=== PATIENT | male | born 1975 | race Caucasian/White ===

== ENCOUNTER 2016-07-16 16:57 | Emergency (ER) | payer OTHER ==
[2016-07-16 17:24] VITALS: BP 138/86; PULSE 102; TEMP 98.1; BMI 31.9
== END 2016-07-16 19:04 | disposition left against medical advice (07) ==
LOC: JER 16:57
DX: Z53.21 Procedure and treatment not carried out due to patient leaving prior to being seen by health care provider (principal)
CPT/HCPCS: 99281-25

== ENCOUNTER 2016-12-21 23:03 | Emergency (ER) | payer OTHER ==
[2016-12-21 23:22] VITALS: BP 126/68; PULSE 104; TEMP 98.6; BMI 30.2
--- NOTE | 2016-12-21 23:56 | PDOC ---
History of Present Illness - General History Source: Patient - History of Present Illness Initial Comments: 12/22/16 02:34 41-year-old male with a history of heavy ETOH use, liver cirrhosis, hemochromatosis, gastro-esophageal reflux disease without esophagitis, essential hypertension, drug-induced disorder of liver, hyperlipidemia, hypercholesterolemia presents to the emergency department with his ex- after his oncologists/Dr. Les Aranda called him and advised him that his INR was 5 and PTT was 54. Patient denies any headache, dizziness, lightheadedness, visual disturbance, neck pains, back pains, chest pain, shortness of breath, abdominal pain, flank pains, urinary symptoms. Patient says he has no complaints. He was at his physician's office this morning for routine exam. Patient states he does not want to be in the emergency department. Patient's states he kept saying Tyrease from the movie [employer] was in his living room earlier today. Pt denies any recent injury but did "bump" his head/ frontal forehead against a cabinet x3d ago. No LOC <Carloz Rogers - Last Filed: 12/22/16 02:39> <Karen Torrez - Last Filed: 12/24/16 07:32> - General Chief Complaint: Revisit, Lab Variance Stated Complaint: EVALUATION Time Seen by Provider: 12/21/16 23:36 Past History - Past Medical History Anemia: No Asthma: No Cancer: No Cardiac Disorders: No CVA: No COPD: No CHF: No Dementia: No Diabetes: No GI Disorders: No Disorders: No HTN: Yes Hypercholesterolemia: No Liver Disease: Yes (liver cirrhosis, hemochromatosis, hepatic encephalopathy) Seizures: No Thyroid Disease: No Lung CA: Yes - Surgical History Abdominal Surgery: No Appendectomy: No Cardiac Surgery: No Cholecystectomy: No Lung Surgery: No Neurologic Surgery: No Orthopedic Surgery: No - Immunization History Immunization Up to Date: Yes - Psycho/Social/Smoking Cessation Hx Anxiety: No Suicidal Ideation: No Smoking History: Never smoked Have you smoked in the past 12 months: No If you are a former smoker, when did you quit?: 2011 Information on smoking cessation initiated: No Hx Alcohol Use: Yes Drug/Substance Use Hx: No Substance Use Type: Alcohol Hx Substance Use Treatment: No <Carloz Rogers - Last Filed: 12/22/16 02:39> <Karen Torrez - Last Filed: 12/24/16 07:32> - Past Medical History Allergies/Adverse Reactions: Allergies Allergy/AdvReac Type Severity Reaction Status Date / Time No Known Drug Allergies Allergy Verified 12/21/16 23:16 Home Medications: Ambulatory Orders Lansoprazole [Prevacid] 30 mg PO DAILY 10/05/15 Review of Systems - Review of Systems Able to Perform ROS?: Yes Comments:: 12/22/16 02:37 CONSTITUTIONAL: Absent: fever, chills, diaphoresis, generalized weakness, malaise, loss of appetite HEENT: Absent: rhinorrhea, nasal congestion, throat pain, throat swelling, difficulty swallowing, mouth swelling, ear pain, eye pain, visual Changes CARDIOVASCULAR: Absent: chest pain, loss of consciousness, palpitations, irregular heart rate, peripheral edema RESPIRATORY: Absent: cough, shortness of breath, dyspnea with exertion, orthopnea, wheezing, stridor, hemoptysis GASTROINTESTINAL: Absent: abdominal pain, abdominal distension, nausea, vomiting, diarrhea, constipation, melena, hematochezia GENITOURINARY: Absent: dysuria, frequency, urgency, hesitancy, hematuria, flank pain, genital pain MUSCULOSKELETAL: Absent: myalgia, arthralgia, joint swelling SKIN: Absent: rash, itching, pallor HEMATOLOGIC/IMMUNOLOGIC: Absent: easy bleeding, easy bruising, lymphadenopathy, frequent infections ENDOCRINE: Absent: unexplained weight gain, unexplained weight loss, heat intolerance, cold intolerance NEUROLOGIC: Absent: headache, focal weakness or paresthesias, dizziness, unsteady gait, seizure, mental status changes, bladder or bowel incontinence PSYCHIATRIC: Absent: anxiety, depression, suicidal or homicidal ideation, hallucinations. Is the patient limited Filipino proficient: No <Carloz Rogers - Last Filed: 12/22/16 02:39> *Physical Exam - Vital Signs Last Vital Signs Temp Pulse Resp BP Pulse Ox 98.6 F 104 H 20 126/68 97 12/21/16 23:18 12/21/16 23:18 12/21/16 23:18 12/21/16 23:18 12/21/16 23:18 - Physical Exam Comments: 12/22/16 02:37 GENERAL: Well developed, well nourished. Awake and alert. No acute distress. HEENT: Normocephalic, atraumatic. PERRLA, EOMI. No conjunctival pallor. Sclera are non- icteric. Moist mucous membranes. Oropharynx is clear. NECK: Supple. Full ROM. No JVD. Carotid pulses 2+ and symmetric, without bruits. No thyromegaly. No lymphadenopathy. CARDIOVASCULAR: Regular rate and rhythm. No murmurs, rubs, or gallops. Distal pulses are 2+ and symmetric. PULMONARY: No evidence of respiratory distress. Lungs clear to auscultation bilaterally. No wheezing, rales or rhonchi. ABDOMINAL: Soft. Non-tender. Non-distended. No rebound or guarding. No organomegaly. Normoactive bowel sounds. MUSCULOSKELETAL Normal range of motion at all joints. No bony deformities or tenderness. No CVA tenderness. EXTREMITIES: No cyanosis. No clubbing. No edema. No calf tenderness. SKIN: Warm and dry. Normal capillary refill. No rashes. No jaundice. NEUROLOGICAL: Alert, awake, appropriate. Cranial nerves 2-12 intact. No deficits to light touch and temperature in face, upper extremities and lower extremities. No motor deficits in the in face, upper extremities and lower extremities. Normoreflexic in the upper and lower extremities. Normal speech. Toes are down- going bilaterally. Gait is normal without ataxia. PSYCHIATRIC: Cooperative. Good eye contact. Appropriate mood and affect. <Carloz Rogers - Last Filed: 12/22/16 02:39> - Vital Signs Last Vital Signs Temp Pulse Resp BP Pulse Ox 98.6 F 104 H 20 126/68 97 12/21/16 23:18 12/21/16 23:18 12/21/16 23:18 12/21/16 23:18 12/21/16 23:18 <Karen Torrez - Last Filed: 12/24/16 07:32> ED Treatment Course - LABORATORY CBC & Chemistry Diagram: 12/22/16 00:10 12/22/16 00:10 - RADIOLOGY Radiograph Interpretation: 12/22/16 00:58 CT scan head w/o contrast: The ventricular system midline and nondilated. No bleeding/mass effect. <Carloz Rogers - Last Filed: 12/22/16 02:39> - LABORATORY CBC & Chemistry Diagram: 12/22/16 00:10 12/22/16 00:10 - ADDITIONAL ORDERS Additional order review: 12/22/16 00:10 RBC 3.38 L MCV 88.0 MCHC 33.9 RDW 16.7 H D MPV 9.9 D Neutrophils % 72.5 D Lymphocytes % 16.9 D Monocytes % 9.6 Eosinophils % 0.3 Basophils % 0.7 <Karen Torrez - Last Filed: 12/24/16 07:32> *DC/Admit/Observation/Transfer - Discharge Dispostion Admit: No <SueGracielaCarloz - Last Filed: 12/22/16 02:39> - Attestations Physician Attestion: I reviewed the case with the mid-level practitioner and agree with the mid- level practitioner's assessment, diagnosis and disposition. <Karen Torrez - Last Filed: 12/24/16 07:32> Diagnosis at time of Disposition: Elevated INR - Discharge Dispostion Disposition: AGAINST MEDICAL ADVICE Condition at time of disposition: Guarded - Referrals Referrals: Taylor Engle [Primary Care Provider] - - Patient Instructions Additional Instructions: You have been strongly advised to not sign out AGAINST MEDICAL ADVICE which you insists on doing this evening. You informed that your physician/Dr. Choe will be returning my call regarding your blood work but you insists on leaving prior to him calling me back. Your ex- has informed you and myself that she will be with you all weekend. Return back to the emergency department immediately for any concerns, headaches , weakness, dizziness, chest pain, shortness of breath. Progress Note - Progress Note Progress Note: 0050hrs: Lynda from commissions coordinator. 0109hrs: Patient adamantly refuses to stay in the emergency department for any treatment. Patient insists on signing out AGAINST MEDICAL ADVICE. Patient is alert and oriented 3. Patient is, accompanied by his ex- who states she will stay with him through the weekend until Saturday when he is able to see his oncologist. Les Mast Dr's team has been notified. <Carloz Rogers - Last Filed: 12/22/16 02:39>
[2016-12-22 00:23] LABS: BASOPHIL 0.7 % (0-2.0); EOSINOPHIL 0.3 % (0-4.5); MCH 29.8 pg (25.7-33.7); MCHC 33.9 g/dl (32.0-35.9); NEUTROPHILS 72.5 % (42.8-82.8); RDW 16.7 % (11.9-15.9); WHITE BLOOD COUNT 10.3 K/mm3 (4.0-10.0)
[2016-12-22 00:39] LABS: PROTHROMBIN TIME (PATIENT) 48.3 SEC (9.98-11.88)
[2016-12-22 00:42] LABS: INR 4.26 (0.82-1.09)
[2016-12-22 00:47] LABS: ALBUMIN 2.9 g/dl (3.4-5.0); ANION GAP 17 (8-16); CALCIUM 8.1 mg/dL (8.5-10.1); CO2 22 mmol/L (21-32); CREATININE 2.7 mg/dL (0.7-1.3); GLUCOSE,RANDOM 89 mg/dL (74-106); SGPT/ALT 102 U/L (12-78)
[2016-12-22 00:58] LABS: ALK PHOS 241 U/L (45-117)
[2016-12-22 01:01] LABS: SGOT/AST 581 U/L (15-37); TOT PROT 7.7 g/dl (6.4-8.2)
[2016-12-22 01:03] LABS: BILIRUBIN,TOTAL 23.9 mg/dL (0.2-1.0)
[2016-12-22 03:42] LABS: MEAN PLT VOLUME 9.9 fl (7.5-11.1); PLATELET COUNT 89 K/MM3 (134-434)
[2016-12-22 03:43] LABS: PLATELET COMMENT2 NO CLUMPING NOTED
[2016-12-22 03:50] LABS: PLATELET ESTIMATE SLT DECREASED (NORMAL)
== END 2016-12-22 01:20 | disposition left against medical advice (07) ==
LOC: JER 23:03
DX: D68.8 Other specified coagulation defects (principal); I10 Essential (primary) hypertension; E78.00 Pure hypercholesterolemia, unspecified; F10.10 Alcohol abuse, uncomplicated; K74.60 Unspecified cirrhosis of liver; E83.119 Hemochromatosis, unspecified
CPT/HCPCS: 36415; 70450-TC; 80053; 82140; 85025; 85610; 99283-25

== ENCOUNTER 2017-02-17 09:27 | Emergency (ER) | payer OTHER ==
[2017-02-17 09:32] VITALS: BP 127/84; PULSE 83; TEMP 97.9; BMI 32.2
--- NOTE | 2017-02-17 10:45 | PDOC ---
History of Present Illness - General Chief Complaint: Wound Stated Complaint: Rt abd incision site leak Time Seen by Provider: 02/17/17 10:04 History Source: Patient Exam Limitations: No Limitations - History of Present Illness Initial Comments: 02/17/17 10:44 41-year-old male with history of cirrhosis, hemachromatosis, hepatic encephalopathy, and recent paracentesis done 2 days ago arrives here with complaints of leaking yellow fluid 6 hours from the paracentesis site to his right lower quadrant. Patient states had apparently 4 L removed and is pending a liver transplant. Patient states unable the care of Dr. Aranda who we have an appointment with tomorrow morning at [address] [place] [address] in [place]. Patient has no complaints of abdominal pain, fever, chills shortness breath, difficulty moving his bowels or urinating. Timing/Duration: 4-6 hours Severity: mild Associated Symptoms: reports: denies symptoms Past History - Travel Traveled outside of the country in the last 30 days: No - Past Medical History Allergies/Adverse Reactions: Allergies Allergy/AdvReac Type Severity Reaction Status Date / Time No Known Drug Allergies Allergy Verified 02/17/17 09:32 Home Medications: Ambulatory Orders Unobtainable [Unobtainable] 02/17/17 Anemia: No Asthma: No Cancer: No Cardiac Disorders: No CVA: No COPD: No CHF: No Dementia: No Diabetes: No GI Disorders: No Disorders: No HTN: Yes Hypercholesterolemia: No Liver Disease: Yes (liver cirrhosis, hemochromatosis, hepatic encephalopathy) Seizures: No Thyroid Disease: No Lung CA: Yes Other medical history: Needs liver transplant, Hemacromatosis - Surgical History Abdominal Surgery: No (paracentesis) Appendectomy: No Cardiac Surgery: No Cholecystectomy: No Lung Surgery: No Neurologic Surgery: No Orthopedic Surgery: No - Immunization History Immunization Up to Date: Yes - Suicide/Smoking/Psychosocial Hx Smoking History: Never smoked Have you smoked in the past 12 months: No If you are a former smoker, when did you quit?: 2011 Information on smoking cessation initiated: No Hx Alcohol Use: No Drug/Substance Use Hx: No Substance Use Type: Alcohol Hx Substance Use Treatment: No Patient Lives Alone: No Review of Systems - Review of Systems Able to Perform ROS?: Yes Constitutional: No: Symptoms Reported Integumentary: No: Symptoms Reported Hematologic/Lymphatic: No: Symptoms Reported *Physical Exam - Vital Signs Last Vital Signs Temp Pulse Resp BP Pulse Ox 97.9 F 83 18 127/84 100 02/17/17 09:29 02/17/17 09:29 02/17/17 09:29 02/17/17 09:29 02/17/17 09:29 - Physical Exam General Appearance: Yes: Nourished, Appropriately Dressed. No: Apparent Distress HEENT: positive: Scleral Icterus (R), Scleral Icterus (L) Neck: positive: Supple Respiratory/Chest: positive: Lungs Clear, Normal Breath Sounds. negative: Respiratory Distress, Accessory Muscle Use Cardiovascular: positive: Regular Rhythm, Regular Rate. negative: Murmur Integumentary: positive: Jaundice, Other (0.5 linear incision to the right lower quadrant with scant amount of clear yellow fluid noted with palpation or movement) Neurologic: positive: Motor Strength 5/5 (ambulatory) Procedures - Laceration/Wound Repair Right Abdomen Wound Length: to 2.5 cm Wound's Depth, Shape: superficial, linear Wound Repaired With: Steri-strips, Dermabond Sterile Dressing Applied: Yes Medical Decision Making - Medical Decision Making 02/17/17 10:46 Patient with fluid draining from right lower quadrant incision. Patient on exam had no signs of infection. Area was reinforced with Dermabond and Steri-Strips. Patient reassessed after half hour of application. Area clean and dry. Patient covered with 4 x 4 gauze and will be discharged home to follow-up with his physician tomorrow morning as previously scheduled. Transfer text *DC/Admit/Observation/Transfer Diagnosis at time of Disposition: Dehiscence of closure of skin Qualifiers: Encounter type: initial encounter Qualified Code(s): T81.31XA - Disruption of external operation (surgical) wound, not elsewhere classified, initial encounter - Discharge Dispostion Disposition: HOME Condition at time of disposition: Improved - Referrals Referrals: Taylor Engle [Primary Care Provider] - - Patient Instructions Printed Discharge Instructions: DI for Laceration Repair With Dermabond Additional Instructions: Keep area clean and dry for the next few days and allow area to heal. Please follow-up with your doctor as scheduled tomorrow. Please return to ED as needed. - Post Discharge Activity
--- NOTE | 2017-02-17 10:50 | PDOC ---
*Physical Exam - Vital Signs Last Vital Signs Temp Pulse Resp BP Pulse Ox 97.9 F 83 18 127/84 100 02/17/17 09:29 02/17/17 09:29 02/17/17 09:29 02/17/17 09:29 02/17/17 09:29 Medical Decision Making - Medical Decision Making 02/17/17 10:49 Pt seen by the Advanced Practice Provider under my direct supervision Ancillary studies reviewed I agree with plan as outlined by the Advanced Practice Provider *DC/Admit/Observation/Transfer Diagnosis at time of Disposition: Dehiscence of closure of skin Qualifiers: Encounter type: initial encounter Qualified Code(s): T81.31XA - Disruption of external operation (surgical) wound, not elsewhere classified, initial encounter - Discharge Dispostion Disposition: HOME Condition at time of disposition: Improved - Referrals Referrals: Taylor Engle [Primary Care Provider] - - Patient Instructions Printed Discharge Instructions: DI for Laceration Repair With Dermabond Additional Instructions: Keep area clean and dry for the next few days and allow area to heal. Please follow-up with your doctor as scheduled tomorrow. Please return to ED as needed. - Post Discharge Activity
== END 2017-02-17 10:59 | disposition home or self-care (01) ==
LOC: JER 09:27
PROC: 0HQ7XZZ Repair Abdomen Skin, External Approach (ICD-10-PCS; principal; 2017-02-17)
DX: T81.31XA Disruption of external operation (surgical) wound, not elsewhere classified, initial encounter (principal); Z98.890 Other specified postprocedural states; K74.69 Other cirrhosis of liver; E83.119 Hemochromatosis, unspecified
CPT/HCPCS: 12001-25; 99281-25

== ENCOUNTER 2017-04-14 19:35 | Emergency (ER) | payer OTHER ==
[2017-04-14 19:55] VITALS: BP 101/56; PULSE 81; TEMP 98.4; BMI 31.1
--- NOTE | 2017-04-14 20:45 | PDOC ---
History of Present Illness - General Chief Complaint: Pain Stated Complaint: PAIN Time Seen by Provider: 04/14/17 20:10 History Source: Patient Exam Limitations: No Limitations - History of Present Illness Initial Comments: 04/14/17 20:39 Patient is a 41M with history of alcohol abuse, cirrhosis, hemochromatosis, and recent paracentesis 3 days ago here today complaining of leakage from his paracentesis site. He states that he's been leaking fluid from the site since this morning. He denies abdominal pain, fevers, chills, nausea and vomiting. He endorses diffuse itchiness. Patient is on the transplant list for liver. Denies shortness of breath, chest pain, and cough. Past History - Past Medical History Allergies/Adverse Reactions: Allergies Allergy/AdvReac Type Severity Reaction Status Date / Time No Known Drug Allergies Allergy Verified 02/17/17 09:32 Home Medications: Ambulatory Orders Unobtainable [Unobtainable] 02/17/17 Anemia: No Asthma: No Cancer: No Cardiac Disorders: No CVA: No COPD: No CHF: No Dementia: No Diabetes: No GI Disorders: No Disorders: No HTN: Yes Hypercholesterolemia: No Liver Disease: Yes (liver cirrhosis, hemochromatosis, hepatic encephalopathy) Seizures: No Thyroid Disease: No Lung CA: Yes - Surgical History Abdominal Surgery: No (paracentesis every Th) Appendectomy: No Cardiac Surgery: No Cholecystectomy: No Lung Surgery: No Neurologic Surgery: No Orthopedic Surgery: No - Immunization History Immunization Up to Date: Yes - Suicide/Smoking/Psychosocial Hx Smoking History: Former smoker Have you smoked in the past 12 months: No If you are a former smoker, when did you quit?: 2011 Information on smoking cessation initiated: No Hx Alcohol Use: No Drug/Substance Use Hx: No Substance Use Type: Alcohol Hx Substance Use Treatment: No Review of Systems - Review of Systems Comments:: 04/14/17 20:42 GENERAL/CONSTITUTIONAL: No fever or chills. No weakness. CARDIOVASCULAR: No chest pain or shortness of breath RESPIRATORY: No cough, wheezing, or hemoptysis. GASTROINTESTINAL: No nausea, vomiting, diarrhea or constipation. GENITOURINARY: No dysuria, frequency, or change in urination. MUSCULOSKELETAL: No joint or muscle swelling or pain. No neck or back pain. SKIN: No rash NEUROLOGIC: No headache, vertigo, loss of consciousness, or change in strength/ sensation. ENDOCRINE: No increased thirst. No abnormal weight change HEMATOLOGIC/LYMPHATIC: No anemia, easy bleeding, or history of blood clots. ALLERGIC/IMMUNOLOGIC: No hives or skin allergy. *Physical Exam - Vital Signs Last Vital Signs Temp Pulse Resp BP Pulse Ox 98.4 F 81 16 101/56 100 04/14/17 19:52 04/14/17 19:52 04/14/17 19:52 04/14/17 19:52 04/14/17 19:52 - Physical Exam Comments: 04/14/17 20:43 GENERAL: Awake, alert, and fully oriented, icteric HEAD: No signs of trauma, normocephalic, atraumatic EYES: PERRLA, EOMI, sclera icteric, conjunctiva clear ENT: Auricles normal inspection, hearing grossly normal, nares patent, oropharynx clear without exudates. Moist mucosa NECK: Normal ROM, supple, no lymphadenopathy, JVD, or masses LUNGS: No distress, speaks full sentences, clear to auscultation bilaterally HEART: Regular rate and rhythm, normal S1 and S2, no murmurs, rubs or gallops, peripheral pulses normal and equal bilaterally. ABDOMEN: Distended nontender, normoactive bowel sounds. No guarding, no rebound. No masses EXTREMITIES: Normal inspection, Normal range of motion, no edema. No clubbing or cyanosis. NEUROLOGICAL: Cranial nerves II through XII grossly intact. Normal speech, no focal sensorimotor deficits SKIN: Warm, Dry, normal turgor, no rashes or lesions noted. Medical Decision Making - Medical Decision Making 04/14/17 20:44 41M with history of liver cirrhosis, alcohol abuse, and recent paracentesis 3 days ago here today complaining of fluid leaking from needle insertion site. Vital signs stable and normal. Afebrile. No other complaints. Wound patched using steristrips and glue. If holds will dress with 4x4s and discharge. *DC/Admit/Observation/Transfer Diagnosis at time of Disposition: Dehiscence of closure of skin - Discharge Dispostion Disposition: HOME Condition at time of disposition: Good - Referrals Referrals: Taylor Engle [Primary Care Provider] - - Patient Instructions Additional Instructions: Please return if you have any new, worsening or concerning symptoms. Please follow up with your primary care physician this week. - Post Discharge Activity
--- NOTE | 2017-04-14 20:51 | PDOC ---
Attending Attestation - Resident Resident Name: Mati Moody - ED Attending Attestation I have performed the following: I have examined & evaluated the patient, The case was reviewed & discussed with the resident, I agree w/resident's findings & plan, Exceptions are as noted - HPI HPI: 04/14/17 20:49 41 yo male with icteric sclera and protuberant abdomen p/w small leak of fluid from his paracentesis site - Physicial Exam PE: 04/14/17 20:52 Jaundices 41 year old who p/w small fluid leak on left side of his protuberant abd s/p paracentesis head ncat neck supple eyes juandiced neck supple cvr [id number] lungs cta b/l abd protuberant,ascites,small 1mm hole that when pushed on yielsa a minute amount of yellow fluid legs from, no rashes skin jaundiced neuro axox3 - Medical Decision Making 04/15/17 19:02 imp fluid leak s/p paracentesis, no cellulitis ,no fever pt had site dermabonded and referred back to the liver transplant team
== END 2017-04-14 20:54 | disposition home or self-care (01) ==
LOC: JER 19:35
DX: T81.31XA Disruption of external operation (surgical) wound, not elsewhere classified, initial encounter (principal); K74.69 Other cirrhosis of liver; E83.118 Other hemochromatosis
CPT/HCPCS: 99282-25

== ENCOUNTER 2017-04-26 08:41 | Emergency (ER) | payer OTHER ==
[2017-04-26 08:57] VITALS: BP 104/54; PULSE 77; TEMP 98.5; BMI 31.1
--- NOTE | 2017-04-26 09:00 | PDOC ---
History of Present Illness - General Chief Complaint: Revisit,Wound Recheck Stated Complaint: POST-OP COMPLICATIONS Time Seen by Provider: 04/26/17 08:55 History Source: Patient - History of Present Illness Associated Symptoms: denies: fever/chills, malaise, nausea/vomiting, shortness of breath, weakness Past History - Past Medical History Allergies/Adverse Reactions: Allergies Allergy/AdvReac Type Severity Reaction Status Date / Time No Known Drug Allergies Allergy Verified 02/17/17 09:32 Home Medications: Ambulatory Orders Unobtainable [Unobtainable] 02/17/17 Anemia: No Asthma: No Cancer: No Cardiac Disorders: No CVA: No COPD: No CHF: No Dementia: No Diabetes: No GI Disorders: No Disorders: No HTN: Yes Hypercholesterolemia: No Liver Disease: Yes (liver cirrhosis, hemochromatosis, hepatic encephalopathy) Seizures: No Thyroid Disease: No Lung CA: Yes - Surgical History Abdominal Surgery: No (paracentesis every Thurs) Appendectomy: No Cardiac Surgery: No Cholecystectomy: No Lung Surgery: No Neurologic Surgery: No Orthopedic Surgery: No - Immunization History Immunization Up to Date: Yes - Suicide/Smoking/Psychosocial Hx Smoking History: Former smoker Have you smoked in the past 12 months: No If you are a former smoker, when did you quit?: 2011 Information on smoking cessation initiated: No Hx Alcohol Use: No Drug/Substance Use Hx: No Substance Use Type: None Hx Substance Use Treatment: No Review of Systems - Review of Systems Constitutional: No: Chills, Fever Respiratory: No: Shortness of Breath ABD/GI: No: Constipated, Diarrhea, Nausea, Vomiting, Abdominal cramping *Physical Exam - Vital Signs Last Vital Signs Temp Pulse Resp BP Pulse Ox 98.5 F 77 17 104/54 100 04/26/17 08:53 04/26/17 08:53 04/26/17 08:53 04/26/17 08:53 04/26/17 08:53 - Physical Exam General Appearance: Yes: Appropriately Dressed. No: Apparent Distress HEENT: positive: Normal Voice Neck: positive: Supple Respiratory/Chest: negative: Respiratory Distress Gastrointestinal/Abdominal: positive: Other (+ascites w/ leakage from paracentesis site to RLQ). negative: Tender Integumentary: positive: Dry, Warm Neurologic: positive: Fully Oriented, Alert, Normal Mood/Affect Medical Decision Making - Medical Decision Making 04/26/17 08:59 41-year-old male history of alcohol abuse, hemachromatosis, cirrhosis, s/p weekly paracentesis in [place], here with leakage from paracentesis site since LVp yesterday. States this is a recurrent complication after his paracentesis and that he usually has "skin glue" applied which usually works to resolve issue. States applied glue to site this am but that site continues to leak. No abdominal pain, nausea, vomiting, fever or chills. Pt in no apparent distress with scleral icterus which is chronic per patient. Paracentesis site with persistent leakage which resolved with dermabond and dressing as per discussion with ED attending. Patient stable for discharge at this time 04/26/17 09:53 *DC/Admit/Observation/Transfer Diagnosis at time of Disposition: Ascitic fluid Qualifiers: Ascites type: other type Qualified Code(s): R18.8 - Other ascites - Discharge Dispostion Disposition: HOME Condition at time of disposition: Improved - Referrals Referrals: Taylor Engle [Primary Care Provider] - - Patient Instructions Additional Instructions: Your ascitic fluid leakage resolved with dermabond and dressing. If symptoms recur, return to ER. Otherwise, continue to follow-up with your liver doctor - Post Discharge Activity
== END 2017-04-26 10:03 | disposition home or self-care (01) ==
LOC: SUPCPDRO 08:41 → JER 08:41
DX: T81.31XA Disruption of external operation (surgical) wound, not elsewhere classified, initial encounter (principal); R18.8 Other ascites; I10 Essential (primary) hypertension; K74.69 Other cirrhosis of liver; E83.118 Other hemochromatosis
CPT/HCPCS: 99281-25

== ENCOUNTER → 2017-04-28 | Emergency (ER) | payer OTHER ==
[2017-04-28 00:43] VITALS: BP 102/61; PULSE 89; TEMP 98.8; BMI 30.4
--- NOTE | 2017-04-28 01:27 | PDOC ---
Attending Attestation - Resident Resident Name: Sridhar Ely - Medical Decision Making 04/28/17 01:54 Pt eloped before I could see the patient.
--- NOTE | 2017-04-28 01:52 | PDOC ---
History of Present Illness - General Chief Complaint: Wound Stated Complaint: WOUND CHECK Time Seen by Provider: 04/28/17 00:57 History Source: Patient Exam Limitations: No Limitations - History of Present Illness Initial Comments: 04/28/17 01:47 41M with pmh of cirrhosis and paracentesis weekly at [facility], presents with leakage after repair in this ED 2 days ago. "They forgot to use steristrips!" States that he started leaking peritoneal fluids after taking a shower. Past History - Past Medical History Allergies/Adverse Reactions: Allergies Allergy/AdvReac Type Severity Reaction Status Date / Time No Known Drug Allergies Allergy Verified 04/28/17 00:42 Home Medications: Ambulatory Orders Unobtainable [Unobtainable] 02/17/17 Anemia: No Asthma: No Cancer: No Cardiac Disorders: No CVA: No COPD: No CHF: No Dementia: No Diabetes: No GI Disorders: No Disorders: No HTN: Yes Hypercholesterolemia: No Liver Disease: Yes (liver cirrhosis, hemochromatosis, hepatic encephalopathy) Seizures: No Thyroid Disease: No Lung CA: Yes - Surgical History Abdominal Surgery: No (paracentesis every Th) Appendectomy: No Cardiac Surgery: No Cholecystectomy: No Lung Surgery: No Neurologic Surgery: No Orthopedic Surgery: No - Immunization History Immunization Up to Date: Yes - Suicide/Smoking/Psychosocial Hx Smoking History: Never smoked Have you smoked in the past 12 months: No If you are a former smoker, when did you quit?: 2011 Information on smoking cessation initiated: No Hx Alcohol Use: No Drug/Substance Use Hx: No Substance Use Type: None Hx Substance Use Treatment: No Review of Systems - Review of Systems Able to Perform ROS?: Yes Is the patient limited Danish proficient: No Constitutional: No: Symptoms Reported HEENTM: No: Symptoms Reported Respiratory: No: Symptoms reported Cardiac (ROS): No: Symptoms Reported ABD/GI: Yes: See HPI : No: Symptoms Reported All Other Systems: Reviewed and Negative *Physical Exam - Vital Signs Last Vital Signs Temp Pulse Resp BP Pulse Ox 98.8 F 89 20 102/61 99 04/28/17 00:42 04/28/17 00:42 04/28/17 00:42 04/28/17 00:42 04/28/17 00:42 - Physical Exam General Appearance: Yes: Nourished, Appropriately Dressed (wet clothes), Disheveled. No: Apparent Distress HEENT: positive: Scleral Icterus (R), Scleral Icterus (L) Respiratory/Chest: positive: Lungs Clear, Normal Breath Sounds Cardiovascular: positive: Regular Rhythm, Regular Rate, S1, S2 Gastrointestinal/Abdominal: positive: Other (Punture wound at lower right quadrant, dressed.) Medical Decision Making - Medical Decision Making 04/28/17 01:51 Redressed with dermabound and steristrip. Patient eloped. *DC/Admit/Observation/Transfer Diagnosis at time of Disposition: Eloped, Encounter for wound care - Discharge Dispostion Disposition: ELOPED - Referrals Referrals: Taylor Engle [Primary Care Provider] - - Patient Instructions - Post Discharge Activity
== END | disposition left against medical advice (07) ==
LOC: JER 00:08
DX: T81.31XD Disruption of external operation (surgical) wound, not elsewhere classified, subsequent encounter (principal)
CPT/HCPCS: 99281-25

== ENCOUNTER 2017-09-10 17:58 | Emergency (ER) | payer OTHER ==
[2017-09-10 18:09] VITALS: BP 125/85; PULSE 90; TEMP 98.7; BMI 31.1
--- NOTE | 2017-09-10 18:09 | PDOC ---
Rapid Medical Evaluation Time Seen by Provider: 09/10/17 18:04 Medical Evaluation: Allergies Allergy/AdvReac Type Severity Reaction Status Date / Time No Known Drug Allergies Allergy Verified 09/10/17 18:03 09/10/17 18:06 I have performed a brief in-person evaluation of this patient. The patient presents with a chief complaint of: chronic ascites and tap done at [facility] 2 days ago. [facility] usually has sutures placed after procedure but now drainage. Pertinent physical exam findings: swellign / draining serrous drainage. S I have ordered the following: nothing The patient will proceed to the ED for further evaluation.
--- NOTE | 2017-09-10 19:29 | PDOC ---
Suture Removal/Wound Check HPI - History of Present Illness Chief Complaint: Wound Stated Complaint: WOUND CHECK Time Seen by Provider: 09/10/17 18:04 History Source: Yes: Patient Exam Limitations: Yes: No Limitations Treated at: [facility] ED - Previous ED Treatment Type of procedure performed on last visit: Yes: Other Tetanus Immunization: Yes: Up to Date Past History - Travel Traveled outside of the country in the last 30 days: No Close contact w/someone who was outside of country & ill: No - Past Medical History Allergies/Adverse Reactions: Allergies Allergy/AdvReac Type Severity Reaction Status Date / Time No Known Drug Allergies Allergy Verified 09/10/17 18:03 Home Medications: Ambulatory Orders Amiloride HCl 5 mg PO ASDIR 09/10/17 Cholecalciferol (Vitamin D3) [Vitamin D3] 5,000 unit PO ASDIR 09/10/17 Ciprofloxacin HCl 500 mg PO ASDIR 09/10/17 Folic Acid - 1 mg PO DAILY 09/10/17 Gabapentin 300 mg PO ASDIR 09/10/17 Lactulose 10 gm PO ASDIR 09/10/17 Magnesium Oxide 400 mg PO ASDIR 09/10/17 Metoprolol Tartrate 25 mg PO ASDIR 09/10/17 Omeprazole 20 mg PO ASDIR 09/10/17 Rifaximin [Xifaxan] 550 mg PO ASDIR 09/10/17 Thiamine HCl [Vitamin B1] 100 mg PO ASDIR 09/10/17 Zinc Sulfate [Orazinc] 220 mg PO ASDIR 09/10/17 Anemia: No Asthma: No Cancer: No Cardiac Disorders: No CVA: No COPD: No CHF: No Dementia: No Diabetes: No GI Disorders: No Disorders: No HTN: Yes Hypercholesterolemia: No Liver Disease: Yes (liver cirrhosis, hemochromatosis, hepatic encephalopathy) Seizures: No Thyroid Disease: No Lung CA: Yes - Surgical History Abdominal Surgery: No (paracentesis every Th) Appendectomy: No Cardiac Surgery: No Cholecystectomy: No Lung Surgery: No Neurologic Surgery: No Orthopedic Surgery: No - Immunization History Immunization Up to Date: Yes - Suicide/Smoking/Psychosocial Hx Smoking History: Never smoked Have you smoked in the past 12 months: No If you are a former smoker, when did you quit?: 2011 Hx Alcohol Use: No Drug/Substance Use Hx: No Substance Use Type: None Hx Substance Use Treatment: No Suture Removal/Wound Check PE - Physical Exam Laceration/Wound Check Symptoms: reports: None Current Severity Level: None Maximum Severity Level: None Pain Localization: None Location of Laceration/Wound: right: Abdomen Pain Radiation: None *Review of Systems - Review of Systems Able to Perform ROS?: Yes Constitutional: No: Chills, Fever, Weakness HEENTM: No: Nose Congestion, Throat Swelling Respiratory: No: Orthopnea, Shortness of Breath, Wheezing ABD/GI: Yes: Other (leakage from right abdomen) Neurological: No: Headache, Numbness *Physical Exam - Vital Signs Last Vital Signs Temp Pulse Resp BP Pulse Ox 98.7 F 90 20 125/85 100 09/10/17 18:05 09/10/17 18:05 09/10/17 18:05 09/10/17 18:05 09/10/17 18:05 - Physical Exam General Appearance: Yes: Nourished, Appropriately Dressed HEENT: positive: EOMI, Pharynx Normal Neck: positive: Supple. negative: Lymphadenopathy (R), Lymphadenopathy (L) Respiratory/Chest: positive: Lungs Clear. negative: Respiratory Distress Cardiovascular: positive: Regular Rhythm, Regular Rate, S1, S2 Gastrointestinal/Abdominal: positive: Protuberent, Other (+ pinpoint wound to right abdomen, draining yellowish drainage) Medical Decision Making - Medical Decision Making 09/10/17 19:22 41 year old male with drainage from abdomen presents for dermabond to abdomen after having tap to remove fluid dermabond and steri- strips applied *DC/Admit/Observation/Transfer Diagnosis at time of Disposition: Visit for wound check - Discharge Dispostion Disposition: HOME Condition at time of disposition: Good Decision to Admit order: No - Referrals Referrals: Taylor Engle [Primary Care Provider] - - Patient Instructions Printed Discharge Instructions: DI for Puncture Wound Additional Instructions: Please follow up at [facility] on Saturday as previously schedule - Post Discharge Activity Forms/Work/School Notes: Back to Work
== END 2017-09-10 19:40 | disposition home or self-care (01) ==
LOC: JERFT 17:58
PROC: 0HQ7XZZ Repair Abdomen Skin, External Approach (ICD-10-PCS; principal; 2017-09-10)
DX: T81.30XA Disruption of wound, unspecified, initial encounter (principal); Z48.89 Encounter for other specified surgical aftercare; K74.60 Unspecified cirrhosis of liver; R18.8 Other ascites
CPT/HCPCS: 12001; 99281-25